=== PATIENT | male | born 1975 | race Asian ===

== ENCOUNTER 2017-04-24 09:39 | Emergency (ER) | payer OTHER ==
[~2017-04-24] VITALS: Ht 175.3 cm; Wt 72.6 kg
[2017-04-24 09:43] VITALS: TEMP 98.3
[2017-04-24 16:16] VITALS: BP 148/86
== END 2017-04-24 16:21 ==
LOC: ED 09:39
PROC: 0HQ1XZZ Repair Face Skin, External Approach (ICD-10-PCS; principal; 2017-04-24)
DX: S01.81XA Laceration without foreign body of other part of head, initial encounter (principal); W20.8XXA Other cause of strike by thrown, projected or falling object, initial encounter; Y93.89 Activity, other specified; Y92.89 Other specified places as the place of occurrence of the external cause; Y99.8 Other external cause status
CPT/HCPCS: 36415; 90715; 96365; 96372; 96375; 99284; J0696; J1885

== ENCOUNTER 2020-01-28 00:57 | Emergency (ER) | payer OTHER ==
[~2020-01-28] VITALS: Ht 175.3 cm; Wt 72.6 kg
[2020-01-28 01:33] LABS: PLATELET COUNT 359 K/uL (142-355)
[2020-01-28 01:37] LABS: POTASSIUM 3.8 mmol/L (3.6-5.2); SODIUM 131 mmol/L (136-145)
[2020-01-28 04:15] VITALS: BP 111/76; TEMP 98.4
== END 2020-01-28 04:15 | disposition home or self-care (01) ==
LOC: ED 00:57
PROVIDERS: Hospitalist
DX: J18.9 Pneumonia, unspecified organism (principal); R50.9 Fever, unspecified; Z20.828 Contact with and (suspected) exposure to other viral communicable diseases; F17.210 Nicotine dependence, cigarettes, uncomplicated
CPT/HCPCS: 36415; 36600; 80053; 80307; 81000; 82550; 82805; 83605; 83880; 84484; 85027; 85610; 85730; 87040; 87502; 87635; 87651; 93005; 96365; 96366; 99284; G2023; J1956; U00003

== ENCOUNTER 2021-02-16 13:55 | Emergency (ER) | payer OTHER ==
[~2021-02-16] VITALS: Ht 175.3 cm; Wt 72.6 kg
[2021-02-16 14:05] VITALS: BP 119/79; TEMP 98.1
== END 2021-02-16 15:53 | disposition home or self-care (01) ==
LOC: ED 13:55
DX: J06.9 Acute upper respiratory infection, unspecified (principal); U07.1 COVID-19; F17.210 Nicotine dependence, cigarettes, uncomplicated
CPT/HCPCS: 99283

== ENCOUNTER 2021-07-01 21:52 | Emergency (ER) | payer OTHER ==
[~2021-07-01] VITALS: Ht 175.3 cm; Wt 72.6 kg
[2021-07-01 22:23] LABS: PLATELET COUNT 350 K/uL (142-355)
[2021-07-02 03:00] VITALS: BP 137/95; TEMP 98.1
== END 2021-07-02 03:00 | disposition home or self-care (01) ==
LOC: ED 21:52
PROVIDERS: Emergency Medicine Emergency Medical Services
PROC: 0T9B70Z Drainage of Bladder with Drainage Device, Via Natural or Artificial Opening (ICD-10-PCS; principal; 2021-07-01)
DX: T40.601A Poisoning by unspecified narcotics, accidental (unintentional), initial encounter (principal); R40.4 Transient alteration of awareness; X58.XXXA Exposure to other specified factors, initial encounter; Y92.89 Other specified places as the place of occurrence of the external cause
CPT/HCPCS: 36415; 51702; 80053; 80307; 80320; 81000; 85027; 96360; 96361; 96375; 96376; 99284; J2310; J2405

== ENCOUNTER 2021-07-02 13:17 | Emergency (ER) | payer OTHER ==
[~2021-07-02] VITALS: Ht 175.3 cm; Wt 74.8 kg
[2021-07-02 13:47] LABS: PLATELET COUNT 322 K/uL (142-355)
[2021-07-02 13:56] LABS: POTASSIUM 3.9 mmol/L (3.6-5.2)
[2021-07-02 14:51] VITALS: BP 133/94; TEMP 98
== END 2021-07-02 14:52 | disposition home or self-care (01) ==
LOC: ED 13:17
PROVIDERS: Emergency Medicine
DX: F19.10 Other psychoactive substance abuse, uncomplicated (principal)
CPT/HCPCS: 80053; 80307; 80320; 82150; 83690; 85027; 96372; 99283; J2405

== ENCOUNTER 2022-08-17 17:11 | Emergency (ER) | payer OTHER ==
[~2022-08-17] VITALS: Ht 175.3 cm; Wt 74.8 kg
[2022-08-17 17:12] VITALS: BP 127/83; TEMP 98.3
== END 2022-08-17 18:35 | disposition home or self-care (01) ==
LOC: ED 17:11
PROC: 0HQFXZZ Repair Right Hand Skin, External Approach (ICD-10-PCS; principal; 2022-08-17)
DX: S61.210A Laceration without foreign body of right index finger without damage to nail, initial encounter (principal); W26.0XXA Contact with knife, initial encounter; Y92.89 Other specified places as the place of occurrence of the external cause
CPT/HCPCS: 90471; 90715; 99283; J0696